=== PATIENT | female | born 1995 | race Caucasian/White ===

== ENCOUNTER 2018-03-23 22:43 | Emergency (ER) | payer OTHER ==
[~2018-03-23] VITALS: Ht 165.1 cm; Wt 78.9 kg
[2018-03-23 22:58] VITALS: Ht 165.1 cm; Wt 78.9 kg
[2018-03-24 02:42] LABS: CARBON DIOXIDE 24.6 mmol/L (21-32); CHLORIDE SERUM 104 mmol/L (98-107); CREATININE SERUM 0.8 mg/dL (0.6-1.0); GFR1 > 60 mL/min; GLUCOSE SERUM 92 mg/dL (74-106); POTASSIUM SERUM 3.6 mmol/L (3.5-5.1); SODIUM SERUM 139 mmol/L (136-145)
[2018-03-24 02:48] LABS: ALBUMIN 3.3 g/dL (3.4-5.0); ALKALINE PHOSPHATASE 91 U/L (46-116); ALT/SGPT 33 U/L (14-59); AMYLASE 27 U/L (25-115); AST/SGOT 29 U/L (15-37); BILIRUBIN TOTAL 0.2 mg/dL (0.20-1.00); LIPASE 97 IU/L (73-393); TOTAL PROTEIN, SERUM 7.4 g/dL (6.4-8.2)
[2018-03-24 02:57] LABS: BASOPHIL % 0.3 % (0-2); PLATELET COUNT 271 x10^3mcL (130-400); RED CELL DISTRIBUTION WIDTH 12.9 % (11.5-14.5)
[2018-03-24 03:51] VITALS: BP 114/53
== END 2018-03-24 03:51 | disposition home or self-care (01) ==
LOC: ED 22:43
PROVIDERS: Emergency Medicine
DX: N39.0 Urinary tract infection, site not specified (principal); Z88.5 Allergy status to narcotic agent; Z98.890 Other specified postprocedural states
CPT/HCPCS: 36415; J1885; J2405; J2765; J7030; Q0162

== ENCOUNTER 2018-09-18 18:05 | Emergency (ER) | payer OTHER ==
[~2018-09-18] VITALS: Ht 165.1 cm; Wt 79.8 kg
[2018-09-18 18:23] VITALS: Ht 165.1 cm; Wt 79.8 kg
[2018-09-18 19:46] VITALS: BP 100/73
== END 2018-09-18 19:47 | disposition home or self-care (01) ==
LOC: ED 18:05
DX: N39.0 Urinary tract infection, site not specified (principal); R03.0 Elevated blood-pressure reading, without diagnosis of hypertension; R19.7 Diarrhea, unspecified; Z88.5 Allergy status to narcotic agent
CPT/HCPCS: Q0162

== ENCOUNTER 2018-10-01 09:52 | Emergency (ER) | payer OTHER ==
[~2018-10-01] VITALS: Ht 165.1 cm; Wt 78.9 kg
[2018-10-01 10:03] VITALS: Ht 165.1 cm; Wt 78.9 kg
[2018-10-01 11:58] VITALS: BP 126/67
== END 2018-10-01 11:58 | disposition home or self-care (01) ==
LOC: ED 09:52
DX: J06.9 Acute upper respiratory infection, unspecified (principal); J02.9 Acute pharyngitis, unspecified; Z88.5 Allergy status to narcotic agent
CPT/HCPCS: 87804; J1885; Q0092

== ENCOUNTER 2018-11-01 10:58 | Emergency (ER) | payer MEDICAID ==
[~2018-11-01] VITALS: Ht 165.1 cm; Wt 80.7 kg
[2018-11-01 11:01] VITALS: BP 122/79; Ht 165.1 cm; Wt 80.7 kg
== END 2018-11-01 11:19 | disposition home or self-care (01) ==
LOC: ED 10:58
DX: H92.01 Otalgia, right ear (principal); Z88.5 Allergy status to narcotic agent

== ENCOUNTER 2019-01-05 13:19 | Emergency (ER) | payer OTHER ==
[~2019-01-05] VITALS: Ht 165.1 cm; Wt 82.1 kg
[2019-01-05 13:23] VITALS: BP 131/71; Ht 165.1 cm; Wt 82.1 kg
== END 2019-01-05 16:43 | disposition home or self-care (01) ==
LOC: ED 13:19
DX: H10.13 Acute atopic conjunctivitis, bilateral (principal); Z88.5 Allergy status to narcotic agent

== ENCOUNTER 2019-01-22 19:50 | Emergency (ER) | payer OTHER ==
[~2019-01-22] VITALS: Ht 165.1 cm; Wt 81.2 kg
[2019-01-22 20:03] VITALS: Ht 165.1 cm; Wt 81.2 kg
[2019-01-22 21:47] LABS: UA SPECIFIC GRAVITY >=1.030 (1.005-1.035); microscopic required? YES; urine erythrocyte 1+ (NEGATIVE)
[2019-01-22 22:24] VITALS: BP 122/76
== END 2019-01-22 22:24 | disposition home or self-care (01) ==
LOC: ED 19:50
PROVIDERS: Specialist
DX: N39.0 Urinary tract infection, site not specified (principal); Z88.5 Allergy status to narcotic agent
CPT/HCPCS: 72072